=== PATIENT | male | born 1975 | race Caucasian/White ===

== ENCOUNTER 2020-04-19 23:45 | Emergency (ER) | payer OTHER ==
[~2020-04-19] VITALS: Ht 182.8 cm; Wt 113.4 kg
[~2020-04-19 23:45] MED LIST: CLARITIN10 MG PO; MOTRIN800 MG PO; ULTRAM50 MG PO; ZITHROMAX Z PA250 MG PO
[2020-04-20 00:23] LABS: BASO # 0.1 10*3/uL (0.0-0.1); BASO % 0.5 % (0.0-1.0); EOS # 0.2 10*3/uL (0.0-0.4); EOS % 1.6 % (1.0-4.0); HEMATOCRIT 44.7 % (42.0-52.0); LYMPH # 3.4 10*3/uL (1.3-4.4); LYMPH % 27.7 % (27.0-41.0); MEAN CORPUSCULAR HGB 28.4 pg (27.0-31.0); MEAN CORPUSCULAR HGB CONC 32.7 g/dl (33.0-37.0); MEAN PLATELET VOLUME 10.4 fl (9.6-12.3); MONO # 0.9 10*3/uL (0.1-1.0); NEUT # 7.6 10*3/uL (2.3-7.9); PLATELET COUNT AUTOMATED 250 10*3/uL (130-400); RED BLOOD COUNT 5.14 10*6/uL (4.50-5.90); RED CELL DISTRI WIDTH 13.2 % (0-14.5); WHITE BLOOD COUNT 12.1 10*3/uL (4.8-10.8)
[2020-04-20 00:42] LABS: ALBUMIN 3.5 gm/dl (3.1-4.5); ALKALINE PHOSPHATASE 66 U/L (45-117); BUN 16 mg/dl (7-24); CHLORIDE 105 mmol/L (98-107); CREATININE 0.82 mg/dL (0.70-1.30); POTASSIUM 3.7 mmol/L (3.5-5.1); SGOT/AST 192 IU/L (3-35); SGPT/ALT 165 U/L (12-78); SODIUM 136 mmol/L (136-145); TOTAL PROTEIN 7.3 gm/dL (6.4-8.2)
[2020-04-20 00:43] LABS: TROPONIN I < 0.015 ng/ml (<0.045)
[2020-04-20] MEDS ORDERED: CYCLOBENZAPRINE5 M3 PO (01:21)
[2020-04-20] MEDS ORDERED: Motrin,Rufen800 MG PO (01:21)
[2020-04-20] MEDS ORDERED: MEDROL DOSEPAK4 MG PO (01:21)
== END 2020-04-20 02:30 | disposition home or self-care (01) ==
LOC: ED 23:45
PROVIDERS: Nurse Practitioner
DX: S43.422A Sprain of left rotator cuff capsule, initial encounter (principal); M54.12 Radiculopathy, cervical region; Z88.5 Allergy status to narcotic agent; X58.XXXA Exposure to other specified factors, initial encounter; Y93.89 Activity, other specified; Y92.89 Other specified places as the place of occurrence of the external cause; Y99.8 Other external cause status